=== PATIENT | male | born 1975 | race Two or more races ===

== ENCOUNTER 2016-12-03 17:42 | Emergency (ER) | payer OTHER, MEDICAID ==
[~2016-12-03] VITALS: Ht 195.6 cm; Wt 95.3 kg
[2016-12-03] MEDS ORDERED: K-TAB10 MEQ PO (18:10)
[2016-12-03] MEDS ORDERED: DESYREL50 MG PO (18:10)
[2016-12-03] MEDS ORDERED: LIORESAL20 MG ORAL (18:10)
[2016-12-03] MEDS ORDERED: WARFARIN SODIUM1 MG ORAL (18:10)
[2016-12-03] MEDS ORDERED: PROZAC10 MG ORAL (18:10)
[2016-12-03 19:00] VITALS: BP 125/86
[2016-12-03 19:24] LABS: APPEARANCE,URINE SLIGHTLY CLOUDY; KETONES,URINE NEGATIVE (NEGATIVE); LEUKOCYTE ESTERASE ,URINE 3+ (NEGATIVE); NITRITE,URINE NEGATIVE (NEGATIVE); PH,URINE 6 (4.5-8.0); PROTEIN,URINE 4+ (NEGATIVE); UROBILINOGEN,URINE NORMAL MG/DL (0.0-1.0)
[2016-12-03 19:33] LABS: AMORPHOUS SEDIMENT,UR FEW /LPF; BACTERIA,URINE FEW /HPF
[2016-12-03] MEDS ORDERED: cloNIDine 0.2mg Tab ORAL ONE (19:45)
[2016-12-03 21:00] VITALS: BP 143/75
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
[2016-12-03] MEDS ORDERED: Acetaminophen 500mg (ES) tab ORAL ONE (22:15)
[2016-12-03 22:44] LABS: BASOPHILS % (AUTO) 0.5 % (0.0-2.0); EOSINOPHILS % (AUTO) 0.2 % (0.0-3.0); LYMPHOCYTES % (AUTO) 8.6 % (20.0-45.0); MEAN CORPUSCULAR HEMOGLOBIN 27.9 PG (27.0-31.0); MEAN CORPUSCULAR HGB CONC 32.7 G/DL (32.0-36.0); MEAN CORPUSCULAR VOLUME 85 FL (80-99); MEAN PLATELET VOLUME 5.7 FL (6.5-10.1); MONOCYTES % (AUTO) 7.7 % (1.0-10.0); NEUTROPHILS % (AUTO) 82.9 % (45.0-75.0); PLATELET COUNT 342 K/UL (150-450); RED CELL DISTRIBUTION WIDTH 13.7 % (11.6-14.8); WHITE BLOOD COUNT 13.3 K/UL (4.8-10.8)
[2016-12-03 22:59] LABS: ALANINE AMINOTRANSFERASE 20 U/L (3-41); ALBUMIN/GLOBULIN RATIO 0.8 (1.0-2.7); ANION GAP 12 (5-15); ASPARTATE AMINO TRANSFERASE 21 U/L (5-40); CALCIUM 9.2 mg/dL (8.6-10.2); CARBON DIOXIDE 28 mEQ/L (20-30); CHLORIDE 98 mEQ/L (98-107); CREATININE 0.3 mg/dL (0.7-1.2); GLOMERULAR FILTRATION RATE > 60 mL/min (>60); HEMOLYSIS 10; POTASSIUM 3.8 mEQ/L (3.4-4.9); SODIUM 138 mEQ/L (135-145); TOTAL PROTEIN 7.6 g/dL (6.6-8.7)
[2016-12-03 23:00] VITALS: BP 161/81
[2016-12-03 23:02] LABS: TROPONIN I 0.31 ng/mL (<=0.30)
[2016-12-03 23:10] LABS: CKMB 2.5 ng/mL (< 6.7)
[2016-12-03] MEDS ORDERED: LORazepam 1mg tab ORAL ONE (23:15)
[2016-12-04 01:00] VITALS: BP 128/81
[2016-12-04 02:28] VITALS: BP 123/84
[2016-12-04 04:25] VITALS: BP 100/62
--- NOTE | 2016-12-04 10:54 | Diagnostic Imaging Report ---
Indication: Headache Technique: Contiguous 5 mm thick transaxial imaging of the head obtained in a Siemens Sensation [address] scanner. Soft tissue and bone windows generated. Total Dose length Product (DLP): [address] Dose Index Volume (CTDIvol): 70.38, 0.15 mGy Comparison: none Findings: The size and configuration of the cortical sulci, basal cisterns, and ventricles are within normal limits for age. There is no mass effect, midline shift, or edema identified. There is no evidence of acute hemorrhage or abnormal intra-axial or extra-axial fluid collections. The bones and soft tissues are unremarkable. Impression: No mass effect, edema or acute bleed. The CT scanner at [facility] is accredited by the [employer] and the scans are performed using dose optimization techniques as appropriate to a performed exam including Automatic Exposure control.
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
--- NOTE | 2016-12-04 17:55 | Cardiology Report ---
APPROVED REPORT EKG Measurement Heart [id number] [place] [id number] Normal sinus rhythm with sinus arrhythmia Minimal voltage criteria for LVH, may be normal variant Nonspecific ST abnormality Abnormal ECG
== END 2016-12-04 04:25 | disposition short-term general hospital (02) ==
LOC: EDBD 17:42 → EMR 19:12
DX: R09.89 Other specified symptoms and signs involving the circulatory and respiratory systems (principal); G90.4 Autonomic dysreflexia; R79.89 Other specified abnormal findings of blood chemistry; G82.50 Quadriplegia, unspecified
CPT/HCPCS: 36415; 36569; 70450; 71010; 80053; 80300; 81001; 82550; 82553; 84439; 84443; 84481; 84484; 85025; 93005; 96361; 96374; 99285; J2405

== ENCOUNTER 2017-03-26 10:05 | Emergency (ER) | payer OTHER, MEDICAID ==
[~2017-03-26] VITALS: Ht 170.2 cm; Wt 65.8 kg
[~2017-03-26 10:05] MED LIST: DESYREL50 MG PO; K-TAB10 MEQ PO; LIORESAL20 MG ORAL; PROZAC10 MG ORAL; WARFARIN SODIUM1 MG ORAL
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
[2017-03-26 11:35] LABS: BASOPHILS % (AUTO) 0.3 % (0.0-2.0); EOSINOPHILS % (AUTO) 0.5 % (0.0-3.0); HEMATOCRIT 44.8 % (42.0-52.0); HEMOGLOBIN 13.7 G/DL (14.2-18.0); MEAN CORPUSCULAR VOLUME 82 FL (80-99); MONOCYTES % (AUTO) 8.3 % (1.0-10.0); NEUTROPHILS % (AUTO) 65.9 % (45.0-75.0); PLATELET COUNT 361 K/UL (150-450); RED BLOOD COUNT 5.43 M/UL (4.70-6.10); RED CELL DISTRIBUTION WIDTH 14.5 % (11.6-14.8); WHITE BLOOD COUNT 6.8 K/UL (4.8-10.8)
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
[2017-03-26 11:49] LABS: APPEARANCE,URINE SLIGHTLY CLOUDY; BILIRUBIN, URINE NEGATIVE (NEGATIVE); GLUCOSE, URINE (UA) NEGATIVE (NEGATIVE); KETONES,URINE NEGATIVE (NEGATIVE); LEUKOCYTE ESTERASE ,URINE 3+ (NEGATIVE); NITRITE,URINE POSITIVE (NEGATIVE); PH,URINE 8 (4.5-8.0); PROTEIN,URINE 3+ (NEGATIVE); UROBILINOGEN,URINE 1 MG/DL (0.0-1.0)
[2017-03-26 11:56] LABS: ANION GAP 7 mmol/L (5-15); BLOOD UREA NITROGEN 11 mg/dL (7-18); CALCIUM 7.8 MG/DL (8.5-10.1); CARBON DIOXIDE 31 MMOL/L (21-32); CHLORIDE 102 MMOL/L (98-107); CREATININE 0.3 MG/DL (0.55-1.30); POTASSIUM 3.4 MMOL/L (3.5-5.1); SODIUM 140 MMOL/L (136-145)
[2017-03-26 11:58] LABS: COLOR,URINE YELLOW
[2017-03-26 12:00] VITALS: BP 116/78
[2017-03-26 12:01] LABS: ALANINE AMINOTRANSFERASE 14 U/L (12-78); ALBUMIN 2.8 G/DL (3.4-5.0); ALBUMIN/GLOBULIN RATIO 0.6 (1.0-2.7); ALKALINE PHOSPHATASE 66 U/L (46-116); ASPARTATE AMINO TRANSFERASE 18 U/L (15-37); BILIRUBIN,TOTAL 0.4 MG/DL (0.2-1.0)
[2017-03-26] MEDS ORDERED: Levofloxacin 500mg tab ORAL ONE (13:00)
[2017-03-26] MEDS ORDERED: CEPHALEXIN500 MG ORAL (13:07)
[2017-03-26] MEDS ORDERED: DOXYCYCLINE MO100 MG ORAL ×2 (13:07→13:53)
[2017-03-26] MEDS ORDERED: AUGMENTIN 875-1 EAC1 ORAL ×2 (13:08→13:53)
[2017-03-26 14:05] VITALS: BP 118/80
[2017-03-26 16:00] VITALS: BP 120/70
[2017-03-26 17:30] VITALS: BP 120/70
--- NOTE | 2017-03-27 16:16 | Cardiology Report ---
APPROVED REPORT EKG Measurement Heart [id number] ND [id number] [id number] Normal sinus rhythm Minimal voltage criteria for LVH, may be normal variant Borderline ECG
== END 2017-03-26 17:30 | disposition home or self-care (01) ==
LOC: EDBD 10:05 → EMR 11:30 → EDBD 11:30 → EMR 17:30
DX: J18.9 Pneumonia, unspecified organism (principal); N39.0 Urinary tract infection, site not specified; J45.909 Unspecified asthma, uncomplicated
CPT/HCPCS: 36415; 71045; 80053; 81003; 83605; 85025; 87040; 87086; 87181; 93005; 96361; 96365; 99284